=== PATIENT | male | born 1945 | race Caucasian/White ===

== ENCOUNTER 2019-06-15 13:05 | Inpatient (IN) | payer MEDICARE, OTHER ==
[~2019-06-15] VITALS: Ht 167.6 cm; Wt 63.8 kg
[~2019-06-15 13:05] MED LIST: ASPI81TA52 PO; ATEN-51 PO; ATOR20TA38 PO; DOCU250C68 PO; HYDR12.58 PO; INSU100I33 SC; NOVO3I SC; RANI150T5 PO
[2019-06-15] MEDS ORDERED: SOD CHLORIDE 0.9% 500 ML IV STA (15:32)
[2019-06-15] MEDS ORDERED: MAGNESIUM HYDROXIDE 30ML CUP PO PRN (17:00)
[2019-06-15] MEDS ORDERED: ACETAMINOPHEN 325 MG TAB PO PRN ×2 (17:00)
[2019-06-15] MEDS ORDERED: morphine 2 MG INJ IV PRN (17:00)
[2019-06-15] MEDS ORDERED: DOCUSATE SODIUM 100 MG CAP PO PRN (17:00)
[2019-06-15] MEDS ORDERED: ONDANSETRON 4 MG INJ IV PRN ×2 (17:00)
[2019-06-15] MEDS ORDERED: hydrALAzine 20 MG INJ IV PRN (17:00)
[2019-06-15] MEDS ORDERED: NITROGLYCERIN (SL) 0.4 MG TAB SL PRN (17:00)
[2019-06-15] MEDS ORDERED: HYDROCODONE/APAP (5/325) TAB PO PRN (17:00)
[2019-06-15] MEDS ORDERED: INSULIN ASPART [NOVOLOG] 3 ML PEN SC SCH (17:00)
[2019-06-15] MEDS ORDERED: NACL 0.9% 3 ML SYG IV SCH (17:00)
[2019-06-15] MEDS ORDERED: LORAZEPAM 2 MG INJ IV PRN (17:00)
[2019-06-15] MEDS ORDERED: ALBUTEROL/IPRATROPIUM (NEB) 3 ML AMP HHN PRN (17:00)
[2019-06-15] MEDS ORDERED: DEXTROSE 50% 50 ML SYRINGE IV PRN ×2 (17:30)
[2019-06-15] MEDS ORDERED: GLUCOSE GEL 15 GRAM TUBE PO PRN ×2 (17:30)
[2019-06-15] MEDS ORDERED: GLUCOSE GEL 15 GRAM TUBE BUCCAL PRN (17:30)
[2019-06-15] MEDS ORDERED: GLUCAGON 1 MG INJ IM PRN (17:30)
[2019-06-15] MEDS: INSULIN ASPART [NOVOLOG] 3 ML PEN SC SCH ×3 (18:00→21:29)
[2019-06-15] MEDS: FUROSEMIDE 40 MG INJ IV SCH (19:59)
[2019-06-15] MEDS ORDERED: INSULIN GLARGINE [LANtus] 3 ML PEN SC SCH (21:00)
[2019-06-15] MEDS: INSULIN GLARGINE [LANTus] (100 UNITS/ML) SYG SC SCH (21:30)
[2019-06-15] MEDS: HEPARIN 5,000 UNIT/1 ML VIAL SC SCH (22:14)
[2019-06-15 23:55] VITALS: BP 215/93; PULSE 70
[2019-06-16] VITALS (7 sets, daily range): BP systolic 142–189; BP diastolic 63–87; PULSE 52–77; RESP 17–18; Ht 167.6 cm; Wt 63.8 kg
[2019-06-16] MEDS: RANITIDINE 150 MG TAB PO SCH ×3 (00:12→20:00)
[2019-06-16] MEDS: ATORVASTATIN 20 MG TAB PO SCH ×2 (00:12→20:00)
[2019-06-16] MEDS: INSULIN ASPART [NOVOLOG] 3 ML PEN SC SCH ×5 (01:10→17:09)
[2019-06-16] MEDS: ACCU-CHEK XX SCH ×2 (02:00)
[2019-06-16] MEDS: ASPIRIN (EC) 325 MG TAB PO SCH (08:16)
[2019-06-16] MEDS: ATENOLOL 25 MG TAB PO SCH (08:16)
[2019-06-16] MEDS: FUROSEMIDE 40 MG INJ IV SCH (08:17)
[2019-06-16] MEDS: HYDROCHLOROTHIAZIDE 12.5 MG CAP PO SCH (08:17)
[2019-06-16] MEDS: HEPARIN 5,000 UNIT/1 ML VIAL SC SCH ×2 (08:20→20:04)
[2019-06-16] MEDS: LOSARTAN 50 MG TAB PO SCH (09:30)
[2019-06-16] MEDS ORDERED: POTASSIUM CHLORIDE 20 MEQ POWDER FOR ORAL SOLN PO ONE (09:30)
[2019-06-16] MEDS ORDERED: INSULIN ASPART [NOVOLOG] 3 ML PEN SC SCH (12:00)
[2019-06-16] MEDS ORDERED: ACCUCHECK 2 AM XX SCH (12:00)
[2019-06-16] MEDS: Insulin NOVOLOG SS MILD Algorithm (SS with meals and bedtime) SC SCH ×3 (12:19→20:04)
[2019-06-16] MEDS ORDERED: ACCUCHECK 2 HOURS AFTER FIRST BITE XX SCH (14:00)
[2019-06-16] MEDS: INSULIN GLARGINE [LANTus] (100 UNITS/ML) SYG SC SCH (20:04)
[2019-06-17 00:02] VITALS: BP 168/72; PULSE 70; RESP 16
[2019-06-17] MEDS ORDERED: ACCUCHECK AT 2AM (Patients on SS coverage) XX SCH (02:00)
[2019-06-17] MEDS: ACCU-CHEK XX SCH ×2 (02:28)
[2019-06-17 03:42] VITALS: BP 168/74; PULSE 63; RESP 17
[2019-06-17 07:28] VITALS: BP 154/68; PULSE 67; RESP 18
[2019-06-17] MEDS: Insulin NOVOLOG SS MILD Algorithm (SS with meals and bedtime) SC SCH ×2 (07:46→11:23)
[2019-06-17] MEDS: INSULIN ASPART [NOVOLOG] 3 ML PEN SC SCH (07:46)
[2019-06-17] MEDS: ASPIRIN (EC) 325 MG TAB PO SCH (08:10)
[2019-06-17] MEDS: RANITIDINE 150 MG TAB PO SCH (08:10)
[2019-06-17] MEDS: HYDROCHLOROTHIAZIDE 12.5 MG CAP PO SCH (08:10)
[2019-06-17] MEDS: LOSARTAN 50 MG TAB PO SCH (08:10)
[2019-06-17] MEDS: ATENOLOL 25 MG TAB PO SCH (08:10)
[2019-06-17] MEDS: HEPARIN 5,000 UNIT/1 ML VIAL SC SCH (08:17)
[2019-06-17 12:13] VITALS: BP_SYST 147; BP_SYST 149; BP_DIAS 78; PULSE 63; RESP 18
== END 2019-06-17 12:39 | disposition home or self-care (01) | DRG 153 ==
LOC: E/R 13:05 → 6WM 17:01 → SUATTDRO 21:15 → OBSVTOIN 06-16 09:22
PROVIDERS: ADMIT Hospitalist; ATTEND Internal Medicine
DX: J06.9 Acute upper respiratory infection, unspecified (principal); E11.9 Type 2 diabetes mellitus without complications; Z95.1 Presence of aortocoronary bypass graft; N19 Unspecified kidney failure; I11.0 Hypertensive heart disease with heart failure; I50.9 Heart failure, unspecified
CPT/HCPCS: 71045; 80048; 80061; 81001; 82962; 83036; 83735; 83880; 84100; 84439; 84443; 84484; 85025; 93005; 93306; 97167; G0378; J0360; J1644; J1815; J1940; J7040